=== PATIENT | male | born 2000 | race Two or more races ===

== ENCOUNTER 2024-01-18 21:15 | Inpatient (IN) | payer BC, MEDICAID ==
[~2024-01-18] VITALS: Ht 188 cm; Wt 65.6 kg
[2024-01-18 21:40] VITALS: PULSE 95; RESP 19; O2SAT 96
[2024-01-18] MEDS: InsuLIN REG 1unit/0.01ml Soln (100units/ml) IV ONE (22:20)
[2024-01-18] MEDS: SODIUM CHLORIDE 0.9% 1,000 ML IV ONE (22:21)
[2024-01-18 22:28] LABS: Base Excess -9.7 mmol/L (-2.0-2.0)
[2024-01-18 22:54] LABS: Basophils # (auto) 0 10 ^3/uL (0-0.2); Eosinophils # (auto) 0 10 ^3/uL (0-0.8); Hemoglobin 17.8 g/dL (13.5-17.5); Monocytes # (auto) 0.4 10 ^3/uL (0-1.3); Red Cell Distribution Width 13.6 % (11.8-14.3)
[2024-01-18 22:58] LABS: Basophils % (auto) 0.1 % (0.0-2.0); Hematocrit 51.7 % (41.0-53.0); Lymphocytes # (auto) 0.6 10 ^3/uL (0.4-5.4); Lymphocytes % (auto) 3.4 % (10.0-50.0); Mean Corpuscular Hemoglobin 30.7 pg (28.0-32.0); Mean Corpuscular Hgb Conc. 34.3 g/dL (32.0-36.0); Mean Corpuscular Volume 89.6 fL (80.0-100.0); Monocytes % (auto) 2.6 % (0.0-12.0); Neutrophils # (auto) 15.2 10 ^3/uL (1.6-8.6); Neutrophils % (auto) 93.9 % (37.0-80.0); Nucleated Red Blood Cells % 0.2 %; Red Blood Cells 5.77 10^6/uL (4.5-5.90); White Blood Cell 16.1 10^3/uL (4.4-10.8)
[2024-01-18 23:15] LABS: Alanine Aminotransferase 38 U/L (7-40); Albumin 4.9 g/dL (3.2-4.8); Alkaline Phosphatase 131 U/L (46-116); Anion Gap 23 (5-15); Aspartate Aminotransferase 45 U/L (13-40); Bilirubin, Total 1.3 mg/dL (0.2-1.0); Blood Urea Nitrogen 17 mg/dL (9-23); Calcium 10.4 mg/dL (8.7-10.4); Carbon Dioxide 15 mmol/L (20-30); Chloride 100 mmol/L (98-107); Potassium 4.4 mmol/L (3.5-5.1); Sodium 138 mmol/L (136-145); Total Protein 7.8 g/dL (5.7-8.2)
[2024-01-18 23:21] LABS: Glucose 421 mg/dL (74-106)
[2024-01-19] MEDS: ONDANSETRON HCL 4 MG/2 ML VIAL IV ONE
[2024-01-19] MEDS: MORPHINE SULFATE 4 MG/ML SYR/VIAL IV ONE
[2024-01-19] MEDS: ACCU-CHEK COMFORT CURVE STRIP VI SCH ×2 (00:30→17:09)
[2024-01-19] MEDS: INSULIN DRIP 100 UNIT/100ML 100 ML IV SCH (00:30)
[2024-01-19] MEDS: SODIUM CHLORIDE 0.9% 1,000 ML IV SCH ×3 (00:33→06:00)
[2024-01-19 00:46] LABS: Chloride 100 mmol/L (98-107); Potassium 4.5 mmol/L (3.5-5.1); Sodium 139 mmol/L (136-145)
[2024-01-19 00:47] LABS: Anion Gap 25 (5-15); Carbon Dioxide 14 mmol/L (20-30)
[2024-01-19 00:48] LABS: Calcium 10.5 mg/dL (8.7-10.4)
[2024-01-19] MEDS: INSULIN LANTUS (GLARGINE) 1 /0.01ml (100units/ml) SC ONE ×2 (00:49→12:43)
[2024-01-19 00:53] LABS: BUN/Creatinine Ratio 15.2 (10.0-20.0); Blood Urea Nitrogen 22 mg/dL (9-23)
[2024-01-19 00:57] LABS: Glucose 420 mg/dL (74-106)
[2024-01-19] MEDS: D5W/SOD CHL 0.45%/KCL 20MEQ 1,000 ML IV SCH ×2 (01:00→08:10)
[2024-01-19] MEDS ORDERED: DOCUSATE SOD 100 MG CAP PO PRN ×2 (07:00→07:15)
[2024-01-19] MEDS ORDERED: HYDROcodone-ACET 5/325MG TAB PO PRN ×2 (07:00→07:15)
[2024-01-19] MEDS ORDERED: ONDANSETRON HCL 4 MG/2 ML VIAL IV PRN ×2 (07:00→07:15)
[2024-01-19] MEDS ORDERED: NITROGLYCERIN 0.4 MG SL TAB SL PRN ×2 (07:00→07:15)
[2024-01-19] MEDS ORDERED: MORPHINE SULFATE INJ 2 MG/ml SYRG IV PRN ×2 (07:00→07:15)
[2024-01-19] MEDS ORDERED: ACETAMINOPHEN 325 MG TAB PO PRN ×2 (07:00→07:15)
[2024-01-19 07:09] LABS: Basophils # (auto) 0.1 10 ^3/uL (0-0.2); Basophils % (auto) 0.4 % (0.0-2.0); Eosinophils # (auto) 0 10 ^3/uL (0-0.8); Hematocrit 42.7 % (41.0-53.0); Hemoglobin 14.8 g/dL (13.5-17.5); Lymphocytes # (auto) 1.8 10 ^3/uL (0.4-5.4); Lymphocytes % (auto) 11.4 % (10.0-50.0); Mean Corpuscular Hemoglobin 30.4 pg (28.0-32.0); Mean Corpuscular Hgb Conc. 34.6 g/dL (32.0-36.0); Monocytes # (auto) 1.6 10 ^3/uL (0-1.3); Monocytes % (auto) 10.2 % (0.0-12.0); Neutrophils # (auto) 12.2 10 ^3/uL (1.6-8.6); Nucleated Red Blood Cells % 0.1 %; Red Blood Cells 4.85 10^6/uL (4.5-5.90); Red Cell Distribution Width 13.7 % (11.8-14.3); White Blood Cell 15.7 10^3/uL (4.4-10.8)
[2024-01-19 07:16] LABS: Alanine Aminotransferase 24 U/L (7-40); Albumin 3.9 g/dL (3.2-4.8); Alkaline Phosphatase 100 U/L (46-116); Anion Gap 6 (5-15); Aspartate Aminotransferase 24 U/L (13-40); BUN/Creatinine Ratio 12.4 (10.0-20.0); Bilirubin, Total 1.2 mg/dL (0.2-1.0); Blood Urea Nitrogen 12 mg/dL (9-23); Calcium 8.5 mg/dL (8.5-10.1); Carbon Dioxide 26 mmol/L (20-30); Sodium 144 mmol/L (136-145); Total Protein 5.6 g/dL (5.7-8.2)
[2024-01-19 07:17] LABS: Chloride 112 mmol/L (98-107)
[2024-01-19 07:18] LABS: Glucose 156 mg/dL (74-106)
[2024-01-19 08:00] VITALS: PULSE 83; RESP 16; O2SAT 99
[2024-01-19 09:06] LABS: Urine Bacteria None Seen /hpf (None Seen)
[2024-01-19] MEDS: cefTRIAXone 1GM/50ML D5W 50 ML IV ONE (09:23)
[2024-01-19 09:26] LABS: Urine Blood Negative /uL (Negative); Urine Clarity Clear (Clear); Urine Color Light-Yellow (Yellow); Urine Mucus FEW (None Seen); Urine Protein, UAD TRACE (Negative); Urine Specific Gravity 1.023 (1.001-1.035); Urine Urobilinogen Normal (Negative); Urine WBC 1 /hpf (0 - 3); Urine pH 5.5 (5.0-9.0)
[2024-01-19] MEDS ORDERED: DEXTROSE (50%) 50ML SYRG IV PRN ×2 (15:15)
[2024-01-19] MEDS: InsuLIN REG 1unit/0.01ml Soln (100units/ml) SC SCH ×2 (17:13→21:47)
[2024-01-19 19:30] VITALS: PULSE 80; RESP 22; O2SAT 95
[2024-01-19 20:45] VITALS: BP 126/72; PULSE 85; RESP 15; TEMP 98.2; O2SAT 99
[2024-01-19] MEDS: INSULIN LANTUS (GLARGINE) 1 /0.01ml (100units/ml) SC SCH (21:49)
[2024-01-20] VITALS (8 sets, daily range): BP systolic 108–125; BP diastolic 60–84; PULSE 60–85; RESP 15–18; TEMP 37.1; O2SAT 92–99
[2024-01-20] MEDS ORDERED: INSUINJ37 SC (00:35)
[2024-01-20] MEDS ORDERED: INSU100I4 SC (00:35)
[2024-01-20 06:38] LABS: Basophils # (auto) 0.1 10 ^3/uL (0-0.2); Basophils % (auto) 0.7 % (0.0-2.0); Eosinophils # (auto) 0.1 10 ^3/uL (0-0.8); Eosinophils % (auto) 0.7 % (0.0-7.0); Hematocrit 41.7 % (41.0-53.0); Hemoglobin 14.6 g/dL (13.5-17.5); Lymphocytes # (auto) 1.9 10 ^3/uL (0.4-5.4); Lymphocytes % (auto) 26.2 % (10.0-50.0); Mean Corpuscular Hemoglobin 30.8 pg (28.0-32.0); Mean Corpuscular Hgb Conc. 34.9 g/dL (32.0-36.0); Monocytes # (auto) 0.8 10 ^3/uL (0-1.3); Monocytes % (auto) 10.3 % (0.0-12.0); Neutrophils # (auto) 4.5 10 ^3/uL (1.6-8.6); Neutrophils % (auto) 62.1 % (37.0-80.0); Red Blood Cells 4.74 10^6/uL (4.5-5.90); Red Cell Distribution Width 13.8 % (11.8-14.3); White Blood Cell 7.3 10^3/uL (4.4-10.8)
[2024-01-20 06:49] LABS: Alanine Aminotransferase 25 U/L (7-40); Albumin 3.3 g/dL (3.2-4.8); Alkaline Phosphatase 83 U/L (46-116); Anion Gap 5 (5-15); Aspartate Aminotransferase 35 U/L (13-40); BUN/Creatinine Ratio 9.9 (10.0-20.0); Bilirubin, Total 1.2 mg/dL (0.2-1.0); Blood Urea Nitrogen 8 mg/dL (9-23); Calcium 8.7 mg/dL (8.7-10.4); Carbon Dioxide 27 mmol/L (20-30); Chloride 112 mmol/L (98-107); Glucose 55 mg/dL (74-106); Potassium 3.6 mmol/L (3.5-5.1); Sodium 144 mmol/L (136-145); Total Protein 5.1 g/dL (5.7-8.2)
[2024-01-20] MEDS: cefTRIAXone 1GM/50ML D5W 50 ML IV SCH (08:59)
== END 2024-01-20 13:41 | disposition home or self-care (01) | DRG 639 ==
LOC: ER 21:15 → TELE 01-19 06:56 → ER 01-19 06:56 → TELE-E-ADS 01-19 20:36
PROVIDERS: ADMIT Nurse Practitioner Family; ATTEND Internal Medicine Pulmonary Disease
DX: E10.10 Type 1 diabetes mellitus with ketoacidosis without coma (principal); D72.829 Elevated white blood cell count, unspecified; Z79.4 Long term (current) use of insulin
CPT/HCPCS: 36415; 36600; 80048; 80053; 81001; 82010; 82805; 82962; 83036; 83930; 84484; 85025; 87040; 96361; 96372; 96374; 99291; G0378; J1815

== ENCOUNTER → 2024-09-20 | Outpatient (CLI) | payer BC, MEDICAID ==
[~2024-09-20] MED LIST: INSU100I4 SC; INSUINJ37 SC
[2024-09-20 09:20] LABS: Basophils # (auto) 0 10 ^3/uL (0-0.2); Basophils % (auto) 0.5 % (0.0-2.0); Eosinophils # (auto) 0.1 10 ^3/uL (0-0.8); Eosinophils % (auto) 1.6 % (0.0-7.0); Hematocrit 49.6 % (41.0-53.0); Hemoglobin 16.8 g/dL (13.5-17.5); Lymphocytes # (auto) 1.2 10 ^3/uL (0.4-5.4); Lymphocytes % (auto) 20.2 % (10.0-50.0); Mean Corpuscular Hemoglobin 28.8 pg (28.0-32.0); Mean Corpuscular Hgb Conc. 33.8 g/dL (32.0-36.0); Mean Corpuscular Volume 85.3 fL (80.0-100.0); Monocytes # (auto) 0.6 10 ^3/uL (0-1.3); Monocytes % (auto) 9.9 % (0.0-12.0); Neutrophils # (auto) 4.1 10 ^3/uL (1.6-8.6); Neutrophils % (auto) 67.8 % (37.0-80.0); Nucleated Red Blood Cells % 0.3 %; Platelet Count (auto) 291 10^3/uL (140-450); Red Blood Cells 5.81 10^6/uL (4.5-5.90); Red Cell Distribution Width 14.3 % (11.8-14.3); White Blood Cell 6.1 10^3/uL (4.4-10.8)
[2024-09-20 09:38] LABS: Alanine Aminotransferase 13 U/L (7-40); Carbon Dioxide 28 mmol/L (20-31); Chloride 106 mmol/L (98-107)
[2024-09-20 09:39] LABS: Anion Gap 7 (5-15); BUN/Creatinine Ratio 11.6 (10.0-20.0); Blood Urea Nitrogen 11 mg/dL (9-23); Magnesium 1.9 mg/dL (1.6-2.6); Potassium 3.9 mmol/L (3.5-5.1); Sodium 141 mmol/L (136-145); Triglycerides 54 mg/dL (< 150)
[2024-09-20 09:40] LABS: Albumin 4.8 g/dL (3.2-4.8); Aspartate Aminotransferase 22 U/L (13-40); Cholesterol 178 mg/dL (< 200)
[2024-09-20 09:41] LABS: Alkaline Phosphatase 117 U/L (46-116); Bilirubin, Total 1.4 mg/dL (0.2-1.0); Glucose 66 mg/dL (74-106); HDL Cholesterol 67 mg/dL (40-59); LDL Cholesterol 103 mg/dL (< 100)
[2024-09-20 10:13] LABS: % Iron Saturation 48.1 % (20-55)
== END | disposition home or self-care (01) ==
LOC: LAB 08:42
PROVIDERS: ATTEND Internal Medicine
DX: E10.9 Type 1 diabetes mellitus without complications (principal); E55.9 Vitamin D deficiency, unspecified; Z00.00 Encounter for general adult medical examination without abnormal findings
CPT/HCPCS: 36415; 80053; 80061; 82306; 82607; 83036; 83540; 83550; 83735; 84443; 85025